=== PATIENT | female | born 1970 | race African-American/Black ===

== ENCOUNTER 2017-01-12 11:09 | Emergency (ER) | payer OTHER ==
[~2017-01-12] VITALS: Ht 175.3 cm; Wt 100.0 kg
[2017-01-12] MEDS ORDERED: DOCU-138 PO (11:18)
[2017-01-12] MEDS ORDERED: iron (11:18)
[2017-01-12] MEDS ORDERED: FAMOTIDINE 20MG/2ML VIAL IV STA (13:13)
[2017-01-12] MEDS ORDERED: SODIUM CHLORIDE 0.9% 1,000 ML IV ONE (13:13)
[2017-01-12] MEDS ORDERED: ONDANSETRON HCL 4MG/2ML VIAL IV STA (13:13)
[2017-01-12] MEDS ORDERED: MORPHINE SULFATE 4 MG/ML CPJ (NOT FOR IM USE) IV STA (13:13)
[2017-01-12 14:14] LABS: CLARITY URINE CLOUDY (CLEAR); COLOR URINE YELLOW (YELLOW); GLUCOSE URINE NEGATIVE (NEGATIVE); KETONES URINE NEGATIVE (NEGATIVE); LEUKOCYTE ESTERASE URINE 2+ (NEGATIVE); NITRITE URINE NEGATIVE (NEGATIVE); OCCULT BLOOD URINE 2+ (NEGATIVE); PH URINE 8.5 (4.5-8.0); PROTEIN URINE TRACE (NEGATIVE)
[2017-01-12 14:22] LABS: EOSINOPHILS % 0.1 % (0.0-5.0); HEMATOCRIT. 27.1 % (36.0-48.0); HEMOGLOBIN. 8.4 g/dL (12.0-16.0); INR 1.1; LYMPHOCYTES % 28.6 % (20.0-50.0); MEAN CORPUSCULAR VOLUME 71.1 fL (81.0-99.0); MEAN PLATELET VOLUME 7.9 fl (7.4-10.4); MONOCYTES % 8.9 % (2.0-8.0); NEUTROPHILS % 61.4 % (40.0-76.0); PLATELET 339 x1000/uL (130-400); PROTHROMBIN TIME 10.9 sec; RED CELL DISTRIBUTION WIDTH 19.8 % (11.6-14.6)
[2017-01-12 14:26] LABS: CARBON DIOXIDE 25 mEq/L (21-32); CHLORIDE 106 mEq/L (98-107); ETHANOL BLOOD < 10 mg/dL
[2017-01-12 14:50] LABS: HCG SCREEN NEGATIVE
[2017-01-12 14:53] LABS: *AMPHETAMINES SCREEN URINE NEGATIVE (NEGATIVE); *BARBITURATES SCREEN URINE NEGATIVE (NEGATIVE); *BENZODIAZEPINES SCREEN URINE NEGATIVE (NEGATIVE); *COCAINE SCREEN URINE NEGATIVE (NEGATIVE); METHADONE URINE SCREEN NEGATIVE (NEGATIVE); OPIATES URINE SCREEN NEGATIVE (NEGATIVE); PHENCYCLIDINE URINE SCREEN NEGATIVE (NEGATIVE)
[2017-01-12 14:54] LABS: CANNABINOID URINE SCREEN PRESUMTIVE POSITIVE (NEGATIVE)
[2017-01-12] MEDS: CEFTRIAXONE 1 G PREMIX 50 ML IV NR (15:49)
[2017-01-12 15:50] VITALS: BP 122/62
== END 2017-01-12 15:50 | disposition home or self-care (01) ==
LOC: ER 13:55
DX: N10 Acute pyelonephritis (principal); R07.89 Other chest pain; D50.9 Iron deficiency anemia, unspecified; F12.10 Cannabis abuse, uncomplicated; Z87.442 Personal history of urinary calculi
CPT/HCPCS: 36415; 76705; 80053; 80305; 81001; 83605; 83690; 84703; 85025; 85610; 93005; 96361; 96365; 96375; 99285; G0482; J2270; J2405; J3490; J7030; Z7610